=== PATIENT | male | born 1975 | race African-American/Black ===

== ENCOUNTER 2025-05-19 16:42 | Emergency (ER) | payer SELFPAY ==
[2025-05-19 16:48] VITALS: BP 128/62; PULSE 76; RESP 17; TEMP 36.6; O2SAT 99
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
[2025-05-19 17:55] LABS: Add Urine Microscopic? YES; Appearance Urine Clear (Clear); Glucose Urine UA Negative (Negative); Leukocyte Esterase Ur Trace LEU/UL (Negative); Nitrate Urine Negative (Negative); Non Pathogenic Casts 0-2; Specific Grav Ur 1.032 (1.001-1.035)
[2025-05-19 18:49] VITALS: BP 129/89; PULSE 70; RESP 16; TEMP 36.6; O2SAT 98
[2025-05-19 18:57] LABS: Trichomonas Vag PCR NOT DETECTED (NOT DETECTE)
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
== END 2025-05-19 20:02 | disposition home or self-care (01) ==
PROVIDERS: Physician Assistant; Emergency Provider Physician Assistant
DX: Z11.3 Encounter for screening for infections with a predominantly sexual mode of transmission (principal); Z20.2 Contact with and (suspected) exposure to infections with a predominantly sexual mode of transmission
CPT/HCPCS: 81001; 87491; 87591; 87661; 99283